=== PATIENT | female | born 1990 | race Caucasian/White ===

== ENCOUNTER 2022-02-05 02:17 | Emergency (ER) | payer MEDICAID, OTHER ==
--- NOTE | 2022-02-05 02:39 | ED Cough/URI ---
General Chief Complaint: Respiratory Problems Stated Complaint: SOA - COUGH - CONGESTION Source: patient History of Present Illness Date Seen by Provider: Feb 05, 2022 Time Seen by Provider: 02:26 Initial Comments PT ARRIVES VIA POV FROM HOME, WITH HER CHILD HAS BEEN SICK FOR THE LAST FEW DAYS WITH COUGH AND CONGESTION HAS HAD FEVER UP TO 100.4 THE LAST [address] [facility] ON TUESDAY AND TESTED NEGATIVE FOR COVID WENT BACK TODAY FOR CONTINUED SYMPTOMS, CXR WAS DONE AND REPORTED NEGATIVE, PER PT SHE WAS GIVEN RX FOR TESSALON AND PREDNISONE TOOK PREDNISONE DIRECTED TODAY, AND LAST DOSE OF TESSALON WAS AT 2200 TONIGHT. 30 MINUTES AGO SHE BEGAN COUGHING AND FEELING LIKE SHE CAN'T CATCH HER BREATH BECAUSE SHE IS COUGHING SO MUCH. NO KNOWN SICK CONTACTS. PT IS A SMOKER PCP: [facility] Allergies and Home Medications Allergies Coded Allergies: No Known Drug Allergies (Unverified , 02/05/22) Patient Home Medication List Doxycycline Hyclate (Doxycycline Hyclate) 100 Mg Tablet, 100 MG PO BID Prescribed by: MERCEDES JOHNSON on 02/05/22306 Promethazine/Dextromethorphan (Promethazine-Dm Syrup) 6.25 Mg-15 Mg/5 Ml Syrup, 5 ML PO Q4H Prescribed by: MERCEDES JOHNSON on 02/05/22306 Review of Systems Review of Systems Constitutional: see HPI, fever EENTM: nose congestion, throat pain Respiratory: see HPI, cough, short of breath Cardiovascular: no symptoms reported Gastrointestinal: no symptoms reported Genitourinary: no symptoms reported Musculoskeletal: no symptoms reported Skin: no symptoms reported Psychiatric/Neurological: Anxiety Past Mzsrrip-Dqzhty-Svxido Hx Patient Social History Tobacco Use?: Yes Tobacco type used: Cigarettes Smoking Status: Current Someday Smoker Substance use?: No Alcohol Use?: No Immunizations Up To Date Influenza Vaccine Up-to-Date: No; Not Current Past Medical History Surgeries: No Respiratory: No Cardiac: No Neurological: No Genitourinary: No Gastrointestinal: No Musculoskeletal: No Endocrine: No HEENT: No Cancer: No Psychosocial: No Integumentary: No Blood Disorders: No Physical Exam Vital Signs - First Documented 02/05/22 02:23 Temp 36.9 Pulse 102 Resp 22 B/P (MAP) 127/83 (98) Pulse Ox 98 O2 Delivery Room Air Capillary Refill : Height: '" Weight: lbs. oz. kg; BMI Method: General Appearance: WD/WN, other (REEKS OF CIGARETTES; CONSTANT HARSH, FORCED COUGHING) Neck: normal inspection Respiratory: normal breath sounds, no respiratory distress, no accessory muscle use Cardiovascular: regular rate, rhythm Gastrointestinal: soft Extremities: normal inspection, no pedal edema, normal capillary refill Neurologic/Psychiatric: no motor/sensory deficits, alert, oriented x 3 Skin: normal color, warm/dry Progress/Results/Core Measures Suspected Sepsis SIRS Temperature: Pulse: Respiratory Rate: Blood Pressure / Mean: Results/Orders Lab Results Laboratory Tests Test 02/05/22 02:28 Range/Units Influenza Type A (RT-PCR) Not Detected Not Detecte Influenza Type B (RT-PCR) Not Detected Not Detecte SARS-CoV-2 RNA (RT-PCR) Not Detected Not Detecte My Orders Orders - MERCEDES JOHNSON DO Covid 19 Inhouse Test (02/05/22 02:26) Influenza A And B By Pcr (02/05/22 02:26) Isolation Central Supply Req (02/05/22 02:26) Rx-Albuterol Inhaler (Rx-Ventolin Hfa In (02/05/22 03:08) Fluticasone/Salmeterol 232-14 (Airduo Re (02/05/22 08:00) Rx-Doxycycline Tablet (Rx-Vibramycin Tab (02/05/22 03:09) Promethazine/ Codeine Syrup (Phenergan W (02/05/22 03:11) Fluticasone/Salmeterol 113-14 (Airduo Re (02/05/22 03:14) Rt Request For Service (02/05/22 03:28) Medications Given in ED Current Medications Medications Dose Ordered Sig/Corie Route Start Time Stop Time Status Last Admin Dose Admin Promethazine HCl/ Codeine 5 ml STK-MED ONCE .ROUTE 02/05/22 03:11 02/05/22 03:13 DC 02/05/22 03:21 5 ML Salmeterol Xinafoate/ Fluticasone 1 each STK-MED ONCE IH 02/05/22 03:14 02/05/22 03:16 DC 02/05/22 03:20 1 EACH Vital Signs/I&O 02/05/22 02/05/22 02:23 02:23 Temp 36.9 Pulse 102 Resp 22 B/P (MAP) 127/83 (98) Pulse Ox 98 O2 Delivery Room Air Room Air Capillary Refill : Progress Note : Progress Note PLACED IN ISOLATION ROOM PPE WORN COVID AND FLU TESTING DONE PT DECLINES CXR, SHE JUST HAD ONE TODAY AT [facility] AND WAS REPORTED TO HER NORMAL O2 SATS 98% ON ROOM AIR NO FEVER COUGH SUBSIDED WHEN STAFF LEFT ROOM PT NOTED TO BE PLAYING/TEXTING ON HER PHONE AND NOT COUGHING, UNTIL STAFF WALKED INTO ROOM AND SHE BEGAN HAVING CONSTANT HARSH FORCED COUGHING AGAIN. WILL ADD ANTIBIOTIC, INHALERS AND LIQUID COUGH SYRUP RT DID SPACER AND INHALER TEACHING ANTICIPATED COURSE, SYMPTOMATIC TREATMENT, AND NEED FOR FOLLOW UP, WELL RETURN PRECAUTIONS DISCUSSED. Departure Impression Primary Impression: Bronchitis Disposition: HOME, SELF-CARE Condition: Stable Departure-Patient Inst. Decision time for Depature: 03:06 Referrals: [facility] Patient Instructions: Bronchitis, Adult ED Add. Discharge Instructions: CONTINUE PREDNISONE AND TESSALON PRESCRIBED YOU MAY TAKE TESSALON 200 MG EVERY 8 HOURS TYLENOL AND MOTRIN NEEDED FOR PAIN OR FEVER LOTS OF CLEAR LIQUIDS FOLLOW UP WITH [facility] IN 2-3 DAYS IF NO BETTER , RETURN TO ER IF SYMPTOMS WORSEN All discharge instructions reviewed with patient and/or family. Voiced understanding. Scripts Promethazine/Dextromethorphan (Promethazine-Dm Syrup) 6.25 Mg-15 Mg/5 Ml Syrup 5 ML PO Q4H for Cough, #200 ML Prov: MERCEDES JOHNSON DO 02/05/22 Doxycycline Hyclate (Doxycycline Hyclate) 100 Mg Tablet 100 MG PO BID, #20 TAB 0 Refills Prov: MERCEDES JOHNSON DO 02/05/22 Work/School Note: Work Release Form Date Seen in the Emergency Department: Feb 05, 2022 Return to Work: Feb 08, 2022 MERCEDES JOHNSON DO Feb 05, 2022 02:39
[2022-02-05] MEDS ORDERED: DOXY100T2 PO (03:07)
[2022-02-05] MEDS ORDERED: D-ME473S11 PO (03:07)
[2022-02-05] MEDS ORDERED: RX-ALBUTEROL INHALER 8.5 GM HFA (PROAIR) IH STA (03:08)
[2022-02-05] MEDS ORDERED: RX-DOXYCYCLINE 100 MG (VIBRAMYCIN) TAB PPK#2 PO STA (03:09)
[2022-02-05] MEDS ORDERED: PROMETHAZINE/ CODEINE SYRUP 5 ML UDC ONE (03:11)
[2022-02-05] MEDS: RT--FLUTICASONE/SALMETEROL 113-14 (AIRDUO RespiCLICK) IH ONE ×2 (03:18→03:20)
[2022-02-05 03:41] VITALS: BP 121/82
[2022-02-05] MEDS ORDERED: RT--FLUTICASONE/SALMETEROL 232-14 (AIRDUO RespiCLICK) IH SCH (08:00)
== END 2022-02-05 03:42 | disposition home or self-care (01) ==
LOC: ER 02:18
DX: J40 Bronchitis, not specified as acute or chronic (principal); F17.210 Nicotine dependence, cigarettes, uncomplicated; Z20.822 Contact with and (suspected) exposure to COVID-19; Z28.310 Unvaccinated for COVID-19
CPT/HCPCS: 87636; 99285